=== PATIENT | male | born 1980 | race Caucasian/White ===

== ENCOUNTER → 2018-05-20 18:21 | Outpatient (CLI) | payer BC, SELFPAY ==
[2018-05-20 19:26] LABS: Basophils % 0.5 % (0.1-2.0); Eosinophils # 0.3 K/mm3 (0.0-0.4); Eosinophils % 3.1 % (0.1-12.0); Hematocrit 46.6 % (42.0-52.0); Hemoglobin 15.8 g/dL (14.1-18.0); Lymphocytes # 2.5 K/mm3 (0.7-4.5); Lymphocytes % 27.8 % (10-50); Mean Corpuscular Hemoglobin 31.4 pg (27.0-31.2); Mean Corpuscular Volume 92.3 fl (80-94); Mean Platelet Volume 9.7 fl (7.4-10.4); Monocytes # 0.3 K/mm3 (0.1-1.0); Monocytes % 3.4 % (1.7-9.3); Neutrophils # 5.8 K/mm3 (1.8-7.8); Neutrophils % 65.2 % (37.0-80.0); Platelet Count 229 K/mm3 (142-424); Red Blood Count 5.05 M/mm3 (4.60-6.20); Red Cell Distribution Width 12.9 % (11.5-17.5); White Blood Count 8.9 K/mm3 (4.8-10.8)
[2018-05-20 19:58] LABS: Alanine Aminotransferase 50 U/L (12-78); Albumin Level 4.2 gm/dL (3.4-5.0); Albumin/Globulin Ratio 1.2 (1.1-1.8); Alkaline Phosphatase 74 U/L (46-116); Anion Gap 15.9 mEq/L (5-15); Aspartate Amino Transferase 20 U/L (15-37); Bilirubin,Total 0.3 mg/dL (0.2-1.0); Blood Urea Nitrogen 13 mg/dL (7-18); Calcium 8.8 mg/dL (8.5-10.1); Carbon Dioxide 26 mmol/L (21.0-32.0); Chloride 103 mmol/L (98-107); Chol/HDL Ratio 10.7 (1-3.5); Cholesterol 256 mg/dL (140-200); Creatinine,Serum 0.87 mg/dL (0.70-1.30); Estimated Glomerular Filt Rate 98 ml/min (>60); GFR (African American) 119 ML/MIN (>60); Globulin 3.6 gm/dl (1.3-3.2); Glucose 111 mg/dL (74-106); HDL Cholesterol 24 mg/dL (27-67); Potassium 3.9 mmoL/L (3.5-5.1); Sodium 141 mmol/L (136-145); T4 (Thyroxine) 8.3 ug/dl (4.7-13.3); Thyroid Stimulating Hormone 0.48 uIU/ml (0.358-3.740); Total Protein,Serum 7.8 gm/dL (6.4-8.2); Triglycerides 792 mg/dL (30-200)
[2018-05-22 15:06] LABS: Vitamin D 25 Hydroxy 14.6 ng/mL (30.0-100.0)
== END ==
PROVIDERS: Visit Provider Emergency Medicine
DX: I10 Essential (primary) hypertension (principal)
CPT/HCPCS: 80053; 80061; 82652; 84436; 84443; 85025

== ENCOUNTER → 2018-06-02 08:45 | Outpatient (CLI) | payer BC, SELFPAY ==
[2018-06-02 10:16] LABS: Hemoglobin A1C 5.5 % (0.0-7.0)
== END ==
PROVIDERS: Visit Provider Emergency Medicine
DX: R73.9 Hyperglycemia, unspecified (principal)
CPT/HCPCS: 36415; 83036

== ENCOUNTER → 2021-03-22 12:50 | Outpatient (CLI) | payer MEDICAID, SELFPAY ==
[2021-03-22 13:28] LABS: Basophils # 0.1 K/mm3 (0-0.2); Basophils % 1.3 % (0.1-2.0); Eosinophils # 0.4 K/mm3 (0.0-0.4); Eosinophils % 4.5 % (0.1-12.0); Hematocrit 47.6 % (42.0-52.0); Hemoglobin 15.7 g/dL (14.1-18.0); Lymphocytes # 2.8 K/mm3 (0.7-4.5); Mean Corpuscular HGB Conc 32.9 g/dL (31.8-35.4); Mean Corpuscular Hemoglobin 31.5 pg (27.0-31.2); Mean Corpuscular Volume 95.6 fl (80-94); Mean Platelet Volume 8.7 fl (7.4-10.4); Monocytes # 0.4 K/mm3 (0.1-1.0); Monocytes % 4.5 % (1.7-9.3); Neutrophils # 4.2 K/mm3 (1.8-7.8); Neutrophils % 53.8 % (37.0-80.0); Platelet Count 232 K/mm3 (142-424); Red Blood Count 4.98 M/mm3 (4.60-6.20); Red Cell Distribution Width 13.6 % (11.5-17.5); White Blood Count 7.8 K/mm3 (4.8-10.8)
[2021-03-22 14:04] LABS: Chloride 104 mmol/L (98-107); Potassium 4.7 mmoL/L (3.5-5.1); Sodium 136 mmol/L (136-145)
[2021-03-22 14:07] LABS: Alanine Aminotransferase 63 U/L (12-78); Albumin Level 4.3 g/dl (3.5-5.0); Alkaline Phosphatase 61 U/L (38-126); Anion Gap 6.7 mEq/L (5-15); Aspartate Amino Transferase 39 U/L (17-59); Bilirubin,Direct 0.3 mg/dl (0.0-0.4); Bilirubin,Indirect 0.1 mg/dL (0.0-0.9); Bilirubin,Total 0.4 mg/dl (0.2-1.3); Bilirubin,Unconjugated 0.1 mg/dL (0.0-1.1); Blood Urea Nitrogen 11 mg/dl (9-20); Carbon Dioxide 30 mmol/L (22.0-30.0); Estimated Glomerular Filt Rate 107 ml/min (>60); GFR (African American) 129 ML/MIN (>60); Glucose 92 mg/dl (74-100); Total Protein,Serum 6.9 g/dl (6.3-8.2)
[2021-03-23 08:15] LABS: HIV Screen 4th Generation wRfx Non Reactive (Non Reactive); Hep A Ab, Total Negative (Negative); Hep B Core Ab, Total Negative (Negative); Hep B Surface Ab, Qual Non Reactive (.); Hepatitis B Surface Antigen Negative (Negative)
[2021-03-23 10:18] LABS: Rapid Plasma Reagin Ab Titer Non Reactive (NonRea<1:1)
[2021-03-25 18:08] LABS: QuantiFERON-TB Gold Plus Negative (Negative)
== END ==
PROVIDERS: PCP Emergency Medicine; Visit Provider Nurse Practitioner Family
DX: F11.21 Opioid dependence, in remission (principal); F17.200 Nicotine dependence, unspecified, uncomplicated; R53.83 Other fatigue
CPT/HCPCS: 36415; 80048; 80076; 85025; 86480; 86592; 86703; 86704; 86706; 86708; 87340; G0432

== ENCOUNTER 2023-03-11 12:49 | Outpatient (CLI) | payer MEDICAID, SELFPAY ==
[2023-03-11 13:33] LABS: Basophils # 0.1 K/mm3 (0-0.2); Basophils % 0.7 % (0.1-2.0); Eosinophils # 0.3 K/mm3 (0.0-0.4); Eosinophils % 4.8 % (0.1-12.0); Hematocrit 45.8 % (42.0-52.0); Hemoglobin 15.8 g/dL (14.1-18.0); Lymphocytes # 2.5 K/mm3 (0.7-4.5); Lymphocytes % 38.8 % (10-50); Mean Corpuscular HGB Conc 34.5 g/dL (31.8-35.4); Mean Corpuscular Volume 92.9 fl (80-94); Mean Platelet Volume 8.9 fl (7.4-10.4); Monocytes # 0.3 K/mm3 (0.1-1.0); Monocytes % 5.2 % (1.7-9.3); Neutrophils # 3.2 K/mm3 (1.8-7.8); Neutrophils % 50.5 % (37.0-80.0); Platelet Count 179 K/mm3 (142-424); Red Blood Count 4.93 M/mm3 (4.60-6.20); Red Cell Distribution Width 13.3 % (11.5-17.5); White Blood Count 6.3 K/mm3 (4.8-10.8)
[2023-03-11 15:58] LABS: Alanine Aminotransferase 62 U/L (12-78); Albumin Level 4.3 g/dl (3.5-5.0); Albumin/Globulin Ratio 1.5 (1.1-1.8); Alkaline Phosphatase 70 U/L (38-126); Anion Gap 8.2 mEq/L (5-15); Aspartate Amino Transferase 38 U/L (17-59); Bilirubin,Total 0.3 mg/dl (0.2-1.3); Blood Urea Nitrogen 10 mg/dl (9-20); Calcium 8.6 mg/dl (8.4-10.2); Carbon Dioxide 30 mmol/L (22.0-30.0); Chloride 104 mmol/L (98-107); Estimated Glomerular Filt Rate 106 ml/min (>60); GFR (African American) 128 ML/MIN (>60); Globulin 2.8 g/dL (1.3-3.2); Glucose 89 mg/dl (74-100); Potassium 4.2 mmoL/L (3.5-5.1); Sodium 138 mmol/L (136-145); Total Protein,Serum 7.1 g/dl (6.3-8.2)
[2023-03-12 08:20] LABS: HCV Ab Non Reactive (Non Reactive); Hep B Core Ab, Total Negative (Negative); Hep B Surface Ab, Qual Non Reactive (.)
[2023-03-12 09:24] LABS: HIV Screen 4th Generation wRfx Non Reactive (Non Reactive)
[2023-03-12 11:12] LABS: Rapid Plasma Reagin Ab Titer Non Reactive titer (NonRea<1:1)
[2023-03-13 09:11] LABS: Hepatitis B Surface Antigen Negative
[2023-03-15 22:30] LABS: QuantiFERON-TB Gold Plus Negative (Negative)
== END 2023-03-11 23:59 ==
LOC: LAB 12:52
PROVIDERS: PCP Internal Medicine; Visit Provider Nurse Practitioner Family
DX: F11.20 Opioid dependence, uncomplicated (principal)
CPT/HCPCS: 36415; 80053; 85025; 86480; 86593; 86703; 86704; 86706; 87340; G0432

== ENCOUNTER 2023-04-25 21:46 | Outpatient (CLI) | payer MEDICAID, SELFPAY ==
[2023-04-25 18:20] LABS: Influenza A, PCR Not Detected (NotDetected); Influenza B, PCR Not Detected (NotDetected)
[2023-04-25 19:07] LABS: Hemoglobin A1C 5.6 % (4.0-6.0)
[2023-04-25 19:11] LABS: Chol/HDL Ratio 8.8 (1-3.5); Cholesterol 212 mg/dl (140-200); HDL Cholesterol 24 mg/dl (40-60); Triglycerides 227 mg/dl (30-150); VLDL Cholesterol 45 mg/dL (0-40)
[2023-04-25 19:44] LABS: Prostate Specific Ag Screen 0.2 ng/ml (0.0-4.0); Thyroid Stimulating Hormone 0.29 uIU/mL (0.465-4.68)
[2023-04-25 23:04] LABS: Coronavirus 19, PCR Detected (NotDetected)
== END 2023-04-25 23:59 ==
LOC: LAB.DROPOF 21:47
PROVIDERS: PCP Family Medicine; Visit Provider Family Medicine
DX: U07.1 COVID-19 (principal); R50.81 Fever presenting with conditions classified elsewhere; M79.10 Myalgia, unspecified site; Z79.899 Other long term (current) drug therapy; Z12.5 Encounter for screening for malignant neoplasm of prostate
CPT/HCPCS: 80061; 83036; 84443; 87636; G0103

== ENCOUNTER 2023-06-22 13:11 | Emergency (ER) | payer MEDICAID, SELFPAY ==
--- NOTE | 2023-06-22 13:29 | EXP.UTC ---
Discharge Plan Disposition Patient Disposition: Home, Self-Care Condition: Good Prescriptions Prescriptions: New ibuprofen [IBU] 800 mg tablet 800 mg PO Q8HP PRN (Reason: Moderate Pain) Qty: 30 0RF No Action buprenorphine-naloxone 2-0.5 mg tablet, sublingual 2 tab sublingual DAILY Referrals Follow up/Referrals: Raghavendra Rosales DO [Staff Physician] - See instructions Isidro Jones DO [Primary Care Provider] - See instructions Activity Restrictions/Add. Instructions Additional Instructions/Restrictions: Rest the extremity, Wear the valeria wrap for compression, Elevate the extremity as tolerated while you are resting. Take ibuprofen for pain. I sent in a prescription to your pharmacy. Follow up with Dr. Rosales (orthopedics). I put in a referral but you need to call his office and schedule an appointment. Follow up with your regular doctor. GO TO THE ER FOR ANY WORSENING SYMPTOMS Clinical Impressions Clinical Impression: Left knee pain Instructions Patient Instructions: DI for Knee Pain, How to Apply an Elastic Wrap on Knee Discharge ED Provider: Harshil Cedillo [facility] [place] General Stated complaint: L knee pain Time Seen by Provider: 06/22/23 13:28 History of Present Illness Provider Complaint: He states that he has had left knee pain for the past 3 days. He denies any injury, but states that the knee popped and then started hurting when he pushed himself up with it. He has had similar episodes in the past, but they resolved quickly. He denies any other complaints. Related Data Home Medications Medication Instructions Recorded Confirmed buprenorphine 2 mg-naloxone 0.5 mg 2 tab sublingual DAILY 10/20/21 06/22/23 sublingual tablet Previous Rx's Medication Instructions Recorded ibuprofen 800 mg tablet (IBU) 800 mg PO Q8HP PRN Moderate Pain 06/22/23 #30 tabs Allergies Allergy/AdvReac Type Severity Reaction Status Date / Time No Known Allergies Allergy Mild Uncoded 04/25/23 14:33 [facility] Disclaimer: The information contained in this section may have been updated after the patient was seen, as this information can be updated by other users. Surgical History History of hernia repair Family History Other Hyperlipidemia Hypertension Social History Smoking Status: Current every day smoker tobacco type: cigarettes packs per day: 1 alcohol intake: former substance use type: denies use current occupational status: employed Travel in the last 8 weeks: None household members: spouse and children housing: house ROS Obtained: Yes All systems reviewed & no additional complaints except as documented Constitutional Constitutional: Denies chills and Denies fever(s) Eyes Eyes: Denies eye discharge ENT Ears, Nose, Mouth, and Throat: Denies dizziness, Denies otalgia and Denies sore throat Cardiovascular Cardiovascular: Denies chest pain Respiratory Respiratory: Denies shortness of breath, Denies chest congestion, Denies cough, Denies stridor and Denies wheezing Gastrointestinal Gastrointestingal: Denies nausea or vomiting Musculoskeletal Musculoskeletal: Reports as per HPI Integumentary/Breasts Skin/Breast: Denies rash Neurologic Neurologic: Denies dizziness and Denies paresthesias Allergic/Immunologic Allergic/Immunologic: Denies wheezing Physical Exam General General appearance: alert and in no apparent distress Head Head exam: atraumatic, normocephalic and normal inspection Eye Eye exam: Present normal appearance, PERRL and EOMI ENT ENT exam: Present normal exam, normal oropharynx, mucous membranes moist, TM's normal bilaterally and normal external ear exam Neck Neck exam: Present normal inspection, full ROM and trachea midline; Absent meningismus or lymphadenopathy Chest Chest inspection: Present normal inspection and symmetric chest wall rise; Absent tenderness Respiratory Respiratory exam: Present normal lung sounds bilaterally; Absent respiratory distress Cardiovascular Cardiovascular exam: Present regular rate and normal rhythm; Absent JVD Abdominal Exam Abdominal exam: Present soft and normal bowel sounds; Absent distention, tenderness or guarding Extremities Exam Extremities exam: Present normal capillary refill; Absent calf tenderness Expanded Lower Extremity Exam Left: Hip/Pelvis exam: Present normal inspection and full ROM; Absent tenderness Upper leg exam: Present normal inspection and full ROM; Absent tenderness Knee exam: Present full ROM, tenderness, swelling and knee extension intact; Absent abrasion, laceration, ecchymosis, deformity, crepitus, dislocation, erythema, effusion, anterior drawer sign, posterior draw sign, pain with valgus, laxity with valgus, pain with varus or laxity with varus Lower leg exam: Present normal inspection, full ROM and Achilles tendon intact; Absent tenderness or Homans' sign Ankle exam: Present normal inspection and full ROM; Absent tenderness Foot/toe exam: Present normal inspection and full ROM; Absent tenderness Neurovascular/Tendon exam: Present normal capillary refill and normal 2-point discrimination; Absent pulse deficit, motor deficit, sensory deficit, tendon deficit, extremity cold to touch or pallor Gait: observed and normal Back Exam Back exam: Present normal inspection; Absent tenderness Neurological Exam Neurological exam: Present alert and oriented X3 Psychiatric Psychiatric exam: Present normal affect and normal mood Skin Skin exam: Present warm, dry, intact and normal color Lymphatic Lymphatic Findings: no adenopathy Medical Decision Making Medical Records Medical records reviewed: No I reviewed the patient's medical records. Nas Inquiry Pt receiving controlled substance: No Radiology Data #1: Image(s): Knee Image Reviewed: Yes I reviewed the patient's radiology image and Yes I have reviewed radiologist's interpretation Preliminary Findings: No Fracture Seen Accession No. 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 Views: 3 views. COMPARISON: No relevant prior studies available. FINDINGS: Bones/joints: Normal. No left knee fracture. No left knee effusion. Soft tissues: Normal. IMPRESSION: No acute findings.
[2023-06-22 13:30] VITALS: BP 160/110; PULSE 72; RESP 17; TEMP 36.6; O2SAT 98; BMI 30.8
[2023-06-22 14:18] VITALS: BP 160/110; PULSE 72; RESP 17; TEMP 36.6; O2SAT 98
== END 2023-06-22 14:26 | disposition home or self-care (01) ==
PROVIDERS: Emergency Provider Nurse Practitioner Family; PCP Internal Medicine
DX: M25.562 Pain in left knee (principal)
CPT/HCPCS: 73562; 99204; 99212; G0463

== ENCOUNTER 2023-07-16 13:36 | Outpatient (CLI) | payer MEDICAID, SELFPAY ==
--- NOTE | 2023-07-16 13:40 | MR_ITS ---
FINAL REPORT CLINICAL HISTORY: Lt medial Knee Pain since may of this year [facility] COMPARISON: None FINDINGS: Multi planar MR imaging was performed of the left knee. The anterior and posterior cruciate ligaments are intact. The quadriceps and patellar tendons are intact. There is a large tear of the posterior horn of the medial meniscus. The lateral meniscus is intact. The medial and lateral collateral ligaments appear intact. The medial and lateral retinacula appear intact. There is bone marrow edema in the medial tibial plateau, mild. No evidence of soft tissue inflammatory reaction. IMPRESSION: Large tear posterior horn medial meniscus. Bone marrow edema in the medial tibial plateau, mild. Reviewed, Interpreted and Dictated by Leroy Huerta MD Transcribed by Nalini Corona Authenticated and . [facility]
== END 2023-07-16 23:59 | disposition home or self-care (01) ==
LOC: RAD 13:37
PROVIDERS: PCP Internal Medicine; Visit Provider Orthopaedic Surgery
DX: M25.562 Pain in left knee (principal)
CPT/HCPCS: 73721

== ENCOUNTER 2023-08-07 09:36 | Outpatient (CLI) | payer MEDICAID, SELFPAY ==
[2023-08-07 09:53] LABS: Basophils # 0.1 K/mm3 (0-0.2); Basophils % 0.9 % (0.1-2.0); Eosinophils # 0.3 K/mm3 (0.0-0.4); Eosinophils % 3.6 % (0.1-12.0); Hematocrit 43.9 % (42.0-52.0); Hemoglobin 14.8 g/dL (14.1-18.0); Lymphocytes # 3.1 K/mm3 (0.7-4.5); Lymphocytes % 41.5 % (10-50); Mean Corpuscular HGB Conc 33.7 g/dL (31.8-35.4); Mean Corpuscular Hemoglobin 32.3 pg (27.0-31.2); Mean Platelet Volume 9.4 fl (7.4-10.4); Monocytes # 0.3 K/mm3 (0.1-1.0); Monocytes % 4.3 % (1.7-9.3); Neutrophils # 3.6 K/mm3 (1.8-7.8); Neutrophils % 49.6 % (37.0-80.0); Platelet Count 177 K/mm3 (142-424); Red Blood Count 4.57 M/mm3 (4.60-6.20); Red Cell Distribution Width 13.9 % (11.5-17.5); White Blood Count 7.3 K/mm3 (4.8-10.8)
[2023-08-07 11:31] LABS: Alanine Aminotransferase 49 U/L (12-78); Albumin Level 4.3 g/dl (3.5-5.0); Albumin/Globulin Ratio 1.5 (1.1-1.8); Alkaline Phosphatase 71 U/L (38-126); Anion Gap 10.6 mEq/L (5-15); Aspartate Amino Transferase 33 U/L (17-59); Bilirubin,Total 0.4 mg/dl (0.2-1.3); Blood Urea Nitrogen 10 mg/dl (9-20); Calcium 9.3 mg/dl (8.4-10.2); Carbon Dioxide 31 mmol/L (22.0-30.0); Chloride 103 mmol/L (98-107); Estimated Glomerular Filt Rate 92 ml/min (>60); GFR (African American) 111 ML/MIN (>60); Globulin 2.8 g/dL (1.3-3.2); Glucose 86 mg/dl (74-100); Potassium 4.6 mmoL/L (3.5-5.1); Sodium 140 mmol/L (136-145); Total Protein,Serum 7.1 g/dl (6.3-8.2)
== END 2023-08-07 23:59 | disposition home or self-care (01) ==
LOC: LAB 09:37
PROVIDERS: PCP Internal Medicine; Visit Provider Orthopaedic Surgery
DX: Z01.818 Encounter for other preprocedural examination (principal); S83.232D Complex tear of medial meniscus, current injury, left knee, subsequent encounter; M23.92 Unspecified internal derangement of left knee
CPT/HCPCS: 36415; 80053; 85025

== ENCOUNTER 2023-08-14 07:40 | Day surgery (SDC) | payer MEDICAID, SELFPAY ==
[2023-08-13 09:12] VITALS: BMI 32.1
[2023-08-14] VITALS (9 sets, daily range): BP systolic 111–141; BP diastolic 68–96; PULSE 61–78; RESP 18–20; TEMP 36.4–37.1; O2SAT 94–98
--- NOTE | 2023-08-14 10:05 | EXP.ANES.CKL ---
[facility] Disclaimer: The information contained in this section may have been updated after the patient was seen, as this information can be updated by other users. Medical History No significant past medical history Surgical History History of hernia repair Family History Other Hyperlipidemia Hypertension Social History Smoking Status: Current every day smoker tobacco type: cigarettes packs per day: 1 alcohol intake: former substance use type: denies use current occupational status: employed Travel in the last 8 weeks: None household members: spouse and children housing: house [facility] Anesthesia Checklist Patient Identification Patient Identification: Arm Band and Verbal (Name & ) Structural Data Admitted From: Home Planned Operative Procedure/s: Knee arthroscopy Verified Documents: Surgical Consent and History and Physical NPO Status Verified Time NPO: 00:00 Additional verifications Anesthesia Reactions: No Hx Blood Transfusions: No Blood Transfusion Reaction: No Airway Assessment Mallampati Score:: Class II C-Spine Mobility Assessed: Yes TMJ Mobility Assessed: Yes Dentition: Edentulous Neurological Assessment Level of Consciousness: Awake Hx Seizures: No Numbness or tingling in extremities: No Anesthesia Plan Anesthesia Risk discussed: Yes Anesthesia Plan: Verified ASA Class: II Anesthesia Type: General
[2023-08-14] MEDS: BUPIVACAINE 0.25% 30ML VIAL 150 MG (11:19)
[2023-08-14] MEDS: CEFAZOLIN SODIUM 2 GM in 0.9 % SODIUM CHLORIDE 100 ML IV (11:23)
--- NOTE | 2023-08-14 11:47 | P.OP_ITS ---
Date of procedure: 08/14/23 Pre-op Diagnosis:: Left knee medial meniscus tear Post-op Diagnosis:: Left knee large complex tear posterior horn medial meniscus Left knee large engaging medial plica Procedure performed:: Left knee arthroscopy with partial medial meniscectomy Left knee arthroscopy with synovectomy and debridement medial engaging plica Surgeon:: Raghavendra Rosales DO TEST BORING CREW CHIEF:: Elizabeth Corrigan Anesthesia: GETA Estimated blood loss (mL): 0 Operative findings:: Large engaging medial plica Complex tear posterior horn medial meniscus Operative note:: Patient is identified preoperatively. Left knee marked with yes and my initials. Transferred operative suite. Placed upon operating bed. General anesthesia administered airway secured. Left lower extremity prepped and draped within the knee nichols. Once prepped and draped final operative timeout performed to identify proper patient procedure and extremity. Everyone involved the case agreed. There is no counter indications to beginning. Did receive p reoperative antibiotics. Marking pen was used to norma the bony landmarks of the knee and standard portal sites. Esmarch was used to exsanguinate the extremity and pneumatic tourniquet inflated to 300 mmHg. Skin knife was used incise standard anterior lateral portal and blunt with trocar was placed in the patellofemoral joint exchange with a camera. Within the patellofemoral joint I swept directly into the medial joint line where the anterior medial portal was made with the help of an 18- gauge spinal needle. Within the medial joint line placed a probe there is a large macerated tear of the posterior horn of the medial meniscus was undersurface tear and flipped upside down upon itself and incarcerated in the back part of the knee. This was flipped out and using combination of straight biter and sucker shaver partial medial meniscectomy was performed back to stable rim. There is an area of tibia cartilage that was being graded away by the flipped meniscal tear. But no britni loose cartilage. Once meniscectomy is complete I swept into the intercondylar notch the ACL was seen and intact I swept into the lateral joint line within the lateral joint line the lateral cartilage was i ntact lateral meniscus was intact. Swept back into the medial and lateral gutters within the medial gutter and superiorly around the patellofemoral joint there is a large medial engaging plica which was irritated. Using the sucker shaver a synovectomy and debridement of the large engaging medial plica was performed. Cameras brought back in the patellofemoral joint knee was flexed patella tracked midline within the trochlea there is no significant cartilage damage in the trochlea or the patella. The knee was drained local anesthesia was infiltrated the portal sites skin closed with nylon stitch sterile dressing placed from toe to thigh patient waken anesthesia taken recovery in stable condition. Condition: stable Disposition: PACU Complications:: None apparent
--- NOTE | 2023-08-14 11:50 | P.PNANES_ITS ---
[facility] Anesthesia Record Part I Anesthesia Record I Intake, IV Amount: 800 Hydration: Adequate Estimated blood loss (mL): 25 Urine output (mL): 0 Blood Pressure: 111/71 SaO2: 95 Pulse Rate: 67 Airway Patency: Patent Respiratory Rate: 18 Temperature: 98.7 F Patient is:: Drowsy Stable to PACU at:: 11:50
[2023-08-16 14:21] VITALS: BP 128/68; PULSE 76; RESP 18; TEMP 36.4; O2SAT 95
--- NOTE | 2023-08-16 14:21 | P.PNANES_ITS ---
[facility] Anesthesia Record Part II Anesthesia Record Part II Discharge Time: 12:20 Destination: Surgical Day Care (OP Surgery) PACU nurse assessment reviewed?: Yes Patient Condition:: Good Anesthesia Complications:: None Swallowing reflex intact?: Yes Airway Patency: Patent Cyanosis?: No Blood Pressure: 128/68 SaO2: 95 Respiratory Rate: 18 Pulse Rate: 76 Temperature: 97.6 F Mental Status: Alert & Oriented Pain level:: 0 Nausea and/or vomitting:: None Intake, IV Amount: 0 Hydration: Adequate
== END 2023-08-14 12:51 | disposition home or self-care (01) ==
PROVIDERS: PCP Internal Medicine; Visit Provider Orthopaedic Surgery
PROC: (CPT 29870; principal; 2023-08-14 11:30)
DX: S83.232A Complex tear of medial meniscus, current injury, left knee, initial encounter (principal); M67.52 Plica syndrome, left knee
CPT/HCPCS: 29881; J0690; J1100; J2405

== ENCOUNTER 2023-08-23 19:39 | Outpatient (CLI) | payer MEDICAID, SELFPAY ==
[2023-08-23 20:52] LABS: Chol/HDL Ratio 10.3 (1-3.5); Cholesterol 288 mg/dl (140-200); HDL Cholesterol 28 mg/dl (40-60)
[2023-08-23 20:54] LABS: Triglycerides 498 mg/dl (30-150)
[2023-08-23 21:03] LABS: Direct LDL Cholesterol 128.16 mg/dL (100-129)
[2023-08-23 21:09] LABS: Free Thyroxine Index 2.4 ug/dL (5.93-13.13); T4 (Thyroxine) 7.4 ug/dl (5.53-11.0); Triiodothryronine (T3) Uptake 33 % (23.5-40.5)
[2023-08-23 21:23] LABS: Thyroid Stimulating Hormone 1.42 uIU/mL (0.465-4.68)
[2023-08-23 21:40] LABS: Vitamin B12 812 pg/mL (239-931)
[2023-08-25 07:08] LABS: Testosterone,Total 219 ng/dL (264-916)
== END 2023-08-23 23:59 | disposition home or self-care (01) ==
PROVIDERS: PCP Family Medicine; Visit Provider Family Medicine
DX: E78.5 Hyperlipidemia, unspecified (principal); R73.9 Hyperglycemia, unspecified; D75.89 Other specified diseases of blood and blood-forming organs
CPT/HCPCS: 80061; 82607; 84403; 84436; 84443; 84479

== ENCOUNTER 2023-11-29 07:56 | Outpatient (CLI) | payer MEDICAID, SELFPAY ==
--- NOTE | 2023-11-29 07:56 | MR_ITS ---
FINAL REPORT CLINICAL HISTORY: left knee pain knot in the posterior aspect of the knee swelling COMPARISON: 07/16/2023 FINDINGS: Multiplanar MR imaging of the right knee was performed without contrast. There is an improved appearance of the posterior horn of the medial meniscus since the prior exam of July 15, consistent with postoperative change. The lateral meniscus is intact. The anterior and posterior cruciate ligaments are intact. The medial collateral ligament and lateral ligamentous complex are intact. The patellar and quadriceps tendons are intact. There is no evidence of fracture. No focal abnormality is identified of the articular cartilage. A small joint effusion is seen. The musculature is intact. There is a large popliteal cyst present, partially ruptured. This is significantly larger than seen on the prior exam. The popliteal cyst measures up to 6.4 cm in the craniocaudal dimension. IMPRESSION: Improved appearance of the posterior horn of the medial meniscus as described. Large popliteal cyst, partially ruptured, significantly larger than seen on the prior exam of June 2023. Reviewed, Interpreted and Dictated by Elvin Rodgers III, MD Transcribed by Nalini Corona Authenticated and [facility]
== END 2023-11-29 23:59 | disposition home or self-care (01) ==
LOC: RAD 07:56
PROVIDERS: PCP Internal Medicine; Visit Provider Physician Assistant
DX: M25.562 Pain in left knee (principal); M23.92 Unspecified internal derangement of left knee
CPT/HCPCS: 73721

== ENCOUNTER 2024-03-02 11:25 | Outpatient (CLI) | payer MEDICAID, SELFPAY ==
[2024-03-02 19:24] LABS: Alanine Aminotransferase 71 U/L (12-78); Albumin Level 4.6 g/dl (3.5-5.0); Albumin/Globulin Ratio 1.6 (1.1-1.8); Alkaline Phosphatase 76 U/L (38-126); Anion Gap 12.1 mEq/L (5-15); Aspartate Amino Transferase 39 U/L (17-59); Bilirubin,Total 0.3 mg/dl (0.2-1.3); Blood Urea Nitrogen 11 mg/dl (9-20); Calcium 9.6 mg/dl (8.4-10.2); Carbon Dioxide 25 mmol/L (22.0-30.0); Chloride 105 mmol/L (98-107); Chol/HDL Ratio 11.7 (1-3.5); Cholesterol 269 mg/dl (140-200); Estimated Glomerular Filt Rate 92 ml/min (>60); GFR (African American) 111 ML/MIN (>60); Globulin 2.9 g/dL (1.3-3.2); Glucose 86 mg/dl (74-100); HDL Cholesterol 23 mg/dl (40-60); Potassium 4.1 mmoL/L (3.5-5.1); Sodium 138 mmol/L (136-145); Total Protein,Serum 7.5 g/dl (6.3-8.2)
[2024-03-02 19:25] LABS: Triglycerides 520 mg/dl (30-150)
[2024-03-02 19:47] LABS: Direct LDL Cholesterol 114.94 mg/dL (100-129)
[2024-03-02 19:58] LABS: Hemoglobin A1C 5.5 % (4.0-6.0)
[2024-03-02 21:24] LABS: Microalbumin/Creatinine Ratio 4.1
[2024-03-02 21:25] LABS: Creatinine,Urine Random 192 mg/dL (Not Estab.)
== END 2024-03-02 23:59 | disposition home or self-care (01) ==
LOC: LAB.DROPOF 03-03 14:00
PROVIDERS: PCP Internal Medicine; Visit Provider Internal Medicine
DX: E78.5 Hyperlipidemia, unspecified (principal); I10 Essential (primary) hypertension; R73.9 Hyperglycemia, unspecified; R73.03 Prediabetes; F17.210 Nicotine dependence, cigarettes, uncomplicated
CPT/HCPCS: 80053; 80061; 82043; 82570; 83036

== ENCOUNTER 2024-03-06 07:48 | Outpatient (CLI) | payer MEDICAID, SELFPAY ==
--- NOTE | 2024-03-06 07:50 | CA_ITS ---
FINAL REPORT TECHNIQUE: Spectral and color Doppler exam CLINICAL HISTORY: HTN,HLD FINDINGS: DOPPLER RENAL VESSELS HISTORY: Hypertension . FINDINGS: Intrarenal resistive indices on the right are 0.61-0.66, normal . Intrarenal resistive indices on the left are 0.51-0.77, normal . Renal size is normal and symmetric. Right main renal artery systolic velocity: 199 cm/sec. Aortic-right renal artery flow velocity ratio: 1.94 COMMENT: No evidence of hemodynamically significant renal artery stenosis . Left main renal artery systolic velocity: 164 cm/sec. Aortic-left renal artery flow velocity ratio: 1.6 COMMENT: No evidence of hemodynamically significant renal artery stenosis . IMPRESSION: No evidence of hemodynamically significant renal artery stenosis Incidental note is made of fatty infiltration of the liver. CTA or gadolinium-enhanced MR may be considered as a more sensitive exam. Alternatively noncontrast MRI may be considered for assessing main renal arteries for stenosis as a more sensitive exam if the patient has renal insufficiency. Reviewed, Interpreted and Dictated by Zoë Ames MD Transcribed by Nalini Corona Authenticated and [facility]
== END 2024-03-06 23:59 | disposition home or self-care (01) ==
LOC: RT 07:48
PROVIDERS: PCP Internal Medicine; Visit Provider Internal Medicine
DX: I10 Essential (primary) hypertension (principal)
CPT/HCPCS: 93976

== ENCOUNTER 2024-06-25 15:31 | Outpatient (CLI) | payer MEDICAID, SELFPAY ==
[2024-06-25 19:15] LABS: Alanine Aminotransferase 48 U/L (12-78); Albumin Level 4.4 g/dl (3.5-5.0); Albumin/Globulin Ratio 1.8 (1.1-1.8); Alkaline Phosphatase 66 U/L (38-126); Anion Gap 5.5 mEq/L (5-15); Aspartate Amino Transferase 29 U/L (17-59); Bilirubin,Total 0.3 mg/dl (0.2-1.3); Blood Urea Nitrogen 14 mg/dl (9-20); Calcium 9.1 mg/dl (8.4-10.2); Carbon Dioxide 30 mmol/L (22.0-30.0); Chloride 108 mmol/L (98-107); Chol/HDL Ratio 6.5 (1-3.5); Cholesterol 156 mg/dl (140-200); Estimated Glomerular Filt Rate 92 ml/min (>60); GFR (African American) 111 ML/MIN (>60); Globulin 2.4 g/dL (1.3-3.2); Glucose 89 mg/dl (74-100); HDL Cholesterol 24 mg/dl (40-60); Potassium 4.5 mmoL/L (3.5-5.1); Sodium 139 mmol/L (136-145); Total Protein,Serum 6.8 g/dl (6.3-8.2)
[2024-06-25 19:26] LABS: Direct LDL Cholesterol 74.02 mg/dL (100-129)
[2024-06-25 19:45] LABS: Triglycerides 466 mg/dl (30-150)
== END 2024-06-25 23:59 | disposition home or self-care (01) ==
LOC: LAB.DROPOF 06-26 13:17
PROVIDERS: PCP Family Medicine; Visit Provider Family Medicine
DX: E78.2 Mixed hyperlipidemia (principal); I10 Essential (primary) hypertension
CPT/HCPCS: 80053; 80061

== ENCOUNTER 2024-11-19 16:30 | Outpatient (CLI) | payer MEDICAID, SELFPAY ==
[2024-11-19 20:10] LABS: Hematocrit 44.4 % (42.0-52.0); Hemoglobin 15.9 g/dL (14.1-18.0); Immature Granulocytes % 0.1 %; Mean Corpuscular HGB Conc 35.8 g/dL (31.8-35.4); Mean Corpuscular Hemoglobin 32.2 pg (27.0-31.2); Mean Corpuscular Volume 89.9 fl (80-94); Nucleated Red Blood Cells % 0 %; Platelet Count 217 K/mm3 (142-424); Red Blood Count 4.94 M/mm3 (4.60-6.20); Red Cell Distribution Width-SD 39.7 fL; White Blood Count 9.3 K/mm3 (4.8-10.8)
[2024-11-19 20:28] LABS: Alanine Aminotransferase 65 U/L (12-78); Albumin Level 4.3 g/dl (3.5-5.0); Albumin/Globulin Ratio 1.6 (1.1-1.8); Alkaline Phosphatase 74 U/L (38-126); Anion Gap 15.6 mEq/L (5-15); Aspartate Amino Transferase 35 U/L (17-59); Bilirubin,Total 0.6 mg/dl (0.2-1.3); Blood Urea Nitrogen 11 mg/dl (9-20); Calcium 9.1 mg/dl (8.4-10.2); Carbon Dioxide 26 mmol/L (22.0-30.0); Chloride 102 mmol/L (98-107); Creatinine,Serum 0.90 mg/dl (0.66-1.25); Estimated Glomerular Filt Rate 92 ml/min (>60); GFR (African American) 111 ML/MIN (>60); Globulin 2.7 g/dL (1.3-3.2); Glucose 80 mg/dl (74-100); Potassium 4.6 mmoL/L (3.5-5.1); Sodium 139 mmol/L (136-145); Total Protein,Serum 7.0 g/dl (6.3-8.2)
[2024-11-19 20:44] LABS: Free T4 (Free Thyroxine) 1.17 ng/dl (0.78-2.19)
[2024-11-19 20:45] LABS: Free Thyroxine Index 2.5 ug/dL (5.93-13.13); T4 (Thyroxine) 7.3 ug/dl (5.53-11.0); Triiodothryronine (T3) Uptake 34 % (23.5-40.5)
[2024-11-19 20:59] LABS: Thyroid Stimulating Hormone 1.53 uIU/mL (0.465-4.68)
== END 2024-11-19 23:59 ==
LOC: LAB.DROPOF 11-20 10:29
PROVIDERS: PCP Family Medicine; Visit Provider Family Medicine
DX: I10 Essential (primary) hypertension (principal); R79.89 Other specified abnormal findings of blood chemistry; R94.6 Abnormal results of thyroid function studies
CPT/HCPCS: 80053; 84436; 84439; 84443; 84479; 85025

== ENCOUNTER 2024-12-07 13:53 | Outpatient (RCR) | payer MEDICAID, SELFPAY ==
--- NOTE | 2024-12-07 14:58 | HMH.PTOPEV ---
PT Evaluation Rehab PT Outpatient Evaluation Start: 12/07/24 13:55 Freq: Status: Active Protocol: Document 12/07/24 13:56 LILY (Rec: 12/07/24 14:58 LILY [id number]) E-signed By Saadia Odonnell, PT Outpatient Therapy Subjective History Subjective History Pt is a 44 y/o male referred to PT for dorsalgia. Pt reports chronic low back for ~2 years with gradually worsening of pain over the past 6 months. Pt reports constant left-sided low back pain, denies more distal LE symptoms or numbness/tingling. Pt reports he has a severe flare up one-two times a month that feels like a pulled muscle. Pt reports difficulty and pain with deep breathing and laying on his sides when this happens. Pt reports pain is aggravated by prolonged sitting, standing, lifting, and twisting. 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 Pt reports vibrations and impact from the machines also increase low back pain. Pt reports he went to the doctor and had a steroid injection a couple weeks ago which has assisted with symptoms. Pt denies having imaging of his back. Pt denies night pain, night sweats , fevers, chills or n/v. Work: [employer] Medical History: Hypertension, Hyperlipidemia New diagnosis of No cancer in past 12 months? Chief Complaint Pain,Stiff Symptom Type Sharp,Stabbing Symptoms Relieved By Rest/Positioning Symptoms Aggravated Sitting,Standing,Physical Activity,Twisting By Current Functional Lifting,Housework,Standing,Sitting,Recreation Activity Limitations Symptom Description Constant but Variable Level of pain today 2 (0-10) Pain scale - at its 2 best (0-10) Pain scale - at its 10 worst (0-10) Lumbopelvic Eval Palapation tenderness bilateral paraspinal Yes: L>R tenderness buttock tenderness Yes: L piriformis, glute med/min, QL Lumbar/Sacral Tenderness,Muscle Guarding Palpation Findings Lumbar/Sacral 2/4 TTP Palpation Overall Comment Accessory Movement L-spine Vertebrae Central P/A Lyman,Left P/A Lyman Accessory Movements that Elicit Symptoms L4 bilateral L5 bilateral Range of Motion Lumbar Spine Active 60 Flexion Range of Motion (degrees) Lumbar Spine Active 20 Extension Range of Motion (degrees) Left Lumbar Spine 10 Lateral Flexion Active Range of Motion (degrees) Right Lumbar Spine 8 Lateral Flexion Active Range of Motion (degrees) Manual Muscle Test Bilateral Knee Extension 5 Normal Strength Grade Knee Flexion 5 Normal Strength Grade Hip Flexion Strength 4 Good Grade Hip Abduction 4 Good Strength Grade Hip Adduction 4+ Good+ Strength Grade Hip Extension 4- Good- Strength Grade Ankle Dorsiflexion 5 Normal Strength Grade DTR Rt Patellar 2+ Lt Patellar 1+ Altered Sensation Bilateral LE Dermatome Level L4,L5 Comment decreased light touch sensation left compared to right Special Tests Sciatic Nerve Negative Left,Negative Right Tension Test Unilateral Straight Negative Left,Negative Right Leg Raise (Lasegue) Test Oswestry Index Section 1 Pain Intensity The pain is moderate and does not vary much Section 2 Personal Care ( my way of washing or dressing even though it causes Washing,Dresing) some pain Section 3 Lifting I can lift heavy weights, but it gives me extra pain Section 4 Walking I cannot walk more than one mile wihtout increasing pain Section 5 Sitting Pain prevents me from sitting for more than one hour Section 6 Standing I have some pain on standing, but it does not increase with time Section 7 Sleeping Because of my pain, my normal night's sleep is less than 6 hours sleep Section 8 Social Life My social life is normal and gives me no extra pain Section 9 Traveling Pain restricts me to short necessary journeys under 30 minutes Section 10 Changing Degreee of My pain is gradually getting worse Pain Score and Risk Level Oswestry Score 20 Oswestry Risk Level Moderate Disability Miscellaneous Dx PT Eval Objective Objective Special tests: - slump test B Core strength: 4/5 Outpatient Therapy Assessment Impairments Problems/ Palpation Tenderness,Impaired Range of Motion,Impaired Impairmments Strength,Impaired Standing,Impaired Sitting,Impaired Lifting,Impaired Bending,Impaired Recreational Activities,Impaired Work Activities,Subjective C/O Pain ,Impaired Self Care/Self Management Prognosis Rehab Potential Good Clinical Impression Consistent with Yes Diagnosis Additional details: S/s most consistent with quadratus lumborum strain. Pt provided with gentle HEP upon evaluation this date involving QL/piriformis stretching and lumbar extensions. PT Patient Goals PT Patient Goals PT Short Term 3 weeks: Patient Goals 1. Verbalize compliance with HEP to assist with progress. 2. Improve pain at worst to 8/10 on VAS to improve overall QOL/function. 3. Improve lumbar AROM flex to 70 to assist with mobility and function. 4. Improve tenderness to palpation of L lumbar and gluteal mm to 0-1/4 to assist with pain and function. PT Shelter Patient 6 weeks: Goals 1. Improve hip/core strength to 4+/5 grossly to assist with function. 2. Improve lumbar AROM flex to 80 and LF to 15 to assist with mobility and function. 3. Improve DELPHINE score to 15 or less to improve overall QOL/function. 4. Improve pain at worst to 6/10 on VAS to improve overall QOL/function. 5. Report ability to work a full shift with pain 6/10 or less. Outpatient Therapy Plan of Care Treatment Plan May Include Therapeutic Exercise Yes Including Home Exercise Program Manual Therapy Yes Techniques Neuromuscular Re- Yes education Therapeutic Yes Activities to Return to Previous Functional/Work Level ADL/Self Care Yes Education Mechanical Traction Yes Dry Needling Yes Thermal Modalities Yes Electrical Yes Stimulation Ultrasound/ Yes Phonophoresis Iontophoresis Yes Massage Yes Eval/Re-Eval Yes Frequency Times per week 2 Duration Number of Weeks 4-6 Addendums This patient is a No candidate for social or vocational rehab ? Patient/Guardian Yes verbally acknowledges understanding of treatment program and consents to further treatment? Patient/Guardian Yes verbally acknowledges understanding of diagnosis, prognosis and goals for treatment? Eval Complexity PT Charges 15608 - Low Complexity Shoulder/Elbow Eval Shoulder Objective Measurements Elbow Objective Measurements PHYSICIAN CERTIFICATION: I certify the specified therapy services for Danyel Sosa JR are required, authorized, and reviewed every 30 days.
== END 2024-12-07 23:59 | disposition home or self-care (01) ==
LOC: PT 13:53
PROVIDERS: Visit Provider Family Medicine
DX: G89.29 Other chronic pain (principal); M54.9 Dorsalgia, unspecified
CPT/HCPCS: 97161

== ENCOUNTER 2024-12-25 13:03 | Outpatient (CLI) | payer MEDICAID, SELFPAY ==
--- NOTE | 2024-12-25 13:05 | XR_ITS ---
FINAL REPORT TECHNIQUE: Lumbar spine 3 views CLINICAL HISTORY: pain in lower back for many months, no known injury, patient stated that the pain comes and goes every two months COMPARISON: None FINDINGS: AP and lateral views of the lumbar spine were obtained. There is no prior exam for comparison. There is no acute fracture or malalignment. Vertebral body height is preserved. Mild anterior osteophytes are present at the L3-4 level. There is moderate facet sclerosis noted in the lower lumbar spine. Disc space height is preserved. No acute paraspinal abnormality. IMPRESSION: Mild degenerative change as described, without acute osseous abnormality. Reviewed, Interpreted and Dictated by Leroy Huerta MD Transcribed by Nalini Corona Authenticated and [facility]
== END 2024-12-25 23:59 | disposition home or self-care (01) ==
LOC: RAD 13:04
PROVIDERS: PCP Family Medicine; Visit Provider Family Medicine
DX: M47.816 Spondylosis without myelopathy or radiculopathy, lumbar region (principal); S39.012A Strain of muscle, fascia and tendon of lower back, initial encounter
CPT/HCPCS: 72100

== ENCOUNTER 2025-01-13 16:40 | Outpatient (RCR) | payer MEDICAID, SELFPAY ==
--- NOTE | 2025-01-13 17:52 | [facility].RHREAS ---
Rehab Reassessment Rehab OP Re-assessment Start: 01/13/25 17:00 Freq: Status: Active Protocol: Document 01/13/25 17:03 BRITValerie (Rec: 01/13/25 17:50 LILY [id number]) E-signed By Saadia Odonnell, PT Oswestry Index Section 1 Pain Intensity The pain comes and goes and is severe Section 2 Personal Care ( increase the pain, but I manage not to change my way of Washing,[place]) doing it Section 3 Lifting lifting heavy weights off the floor, but I can manage light to medium Section 4 Walking I cannot walk more than 1/4 mile without increasing pain Section 5 Sitting Pain prevents me from sitting for more than one hour Section 6 Standing I cannot stand more than 1 hour without increasing pain Section 7 Sleeping I get pain in bed, but it does not prevent me from sleeping well Section 8 Social Life My social life is normal but increases the degree of pain Section 9 Traveling I get extra pain while traveling, but it does not compel me to seek al Section 10 Changing Degreee of My pain is gradually getting worse Pain Score and Risk Level Oswestry Score 26 Oswestry Risk Level Severe Disability Rehab Re-assessment Subjective Subjective Pt has not attended PT since his initial evaluation 36 days ago due to scheduling issues. Pt reports compliance with HEP without significant noted changes in symptoms. Pt reports worsening of symptoms since yesterday after work. Pt reports left-sided low back pain at worst as 6/10 on VAS aggravated by prolonged sitting, standing, walking, lifting, twisting and laying on his side. Pt denies distal LE symptoms or paresthesia. Objective Objective Notes Palpation: 2/4 TTP of L piriformis, glute med/min, QL Lumbar AROM: flex 70, extension 20, LF 10 Assessment Assessment Notes Pt has not attended PT since his initial evaluation due to scheduling issues although reports compliance with HEP. Pt demonstrated slight improvement in subjective report of pain and lumbar flexion AROM this date although demonstrated regression in DELPHINE score. Pt continues to report moderate left-sided low back pain with tenderness to palpation of the left quadratus lumborum. 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 Overall, the pt would continue to benefit from skilled PT to further improve subjective report of pain, lumbar AROM, strength, and functional/occupational activity tolerance to improve overall QOL. PT Patient Goals PT Short Term 3 weeks: 3/4 Patient Goals 1. Verbalize compliance with HEP to assist with progress. -MET 2. Improve pain at worst to 8/10 on VAS to improve overall QOL/function. -MET 3. Improve lumbar AROM flex to 70 to assist with mobility and function. -MET 4. Improve tenderness to palpation of L lumbar and gluteal mm to 0-1/4 to assist with pain and function. - NOT MET PT Prison Patient 6 weeks: Goals 1. Improve hip/core strength to 4+/5 grossly to assist with function. 2. Improve lumbar AROM flex to 80 and LF to 15 to assist with mobility and function. 3. Improve DELPHINE score to 15 or less to improve overall QOL/function. 4. Improve pain at worst to 6/10 on VAS to improve overall QOL/function. 5. Report ability to work a full shift with pain 6/10 or less. Plan Plan Continue POC to address remaining deficits. Incorporate STM To assist with QL extensibility. Frequency of Therapy 2x/week Duration of Therapy 4 more weeks Therapeutic Exercise Yes Including Home Exercise Program Manual Therapy Yes Techniques Neuromuscular Re- Yes education Therapeutic Yes Activities to Return to Previous Functional/Work Level ADL/Self Care Yes Education Mechanical Traction Yes Dry Needling Yes Thermal Modalities Yes Electrical Yes Stimulation Ultrasound/ Yes Phonophoresis Iontophoresis Yes Massage Yes Eval/Re-Eval Yes Time and Billing Re-Eval Time 12 Re-Eval Billing 0 Units Charge for PT No reassessment? Charge for OT No reassessment? PHYSICIAN CERTIFICATION: I certify the specified therapy services for Danyel Sosa JR are required, authorized, and reviewed every 30 days.
== END 2025-01-13 23:59 | disposition home or self-care (01) ==
LOC: PT 16:40
PROVIDERS: PCP Family Medicine; Visit Provider Family Medicine
DX: M54.50 Low back pain, unspecified (principal)
CPT/HCPCS: 97110

== ENCOUNTER 2025-01-26 16:45 | Outpatient (RCR) | payer MEDICAID, SELFPAY | END 2025-01-26 23:59 | disposition home or self-care (01) | LOC: PT 16:45 | PROVIDERS: PCP Family Medicine; Visit Provider Family Medicine | DX: M54.9 Dorsalgia, unspecified (principal) | CPT/HCPCS: 97110 ==